=== PATIENT | female | born 2000 | race Caucasian/White ===

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

== ENCOUNTER → 2020-01-23 10:11 | Outpatient (CLI) | payer OTHER, MEDICAID, SELFPAY ==
[2020-01-23 11:06] LABS: Glucose,Fasting 88 mg/dl (74-100)
[2020-01-23 11:55] LABS: Glucose 1 Hour 113 mg/dL (74-100)
== END ==
PROVIDERS: Visit Provider Obstetrics & Gynecology
DX: Z34.90 Encounter for supervision of normal pregnancy, unspecified, unspecified trimester (principal)
CPT/HCPCS: 36415; 82951

== ENCOUNTER → 2020-03-14 14:45 | Outpatient (CLI) | payer OTHER, MEDICAID, SELFPAY ==
--- NOTE | 2020-03-14 14:46 | US_ITS ---
PROCEDURE: US OB FOLLOW UP CLINICAL INDICATION: US OB- Growth CAROL- SGA COMPARISON: US US OB /MATERNAL DETAIL from 12/03/2019 FINDINGS: There is a live IUP in cephalic presentation. Cervix is closed and measures 3 cm. heart and body motion noted. The placenta is posterior and lateral and grade 2 Measurements: Average ultrasound age 35weeks 3days. Gestational Age 35weeks 3days Estimated due date by ultrasound age 0104/15/2020. Estimated weight 2,567g BPD = 36weeks 2days OFD = 35 weeks 1 day HC = 35weeks 1day AC = 34weeks 2days FL = 36weeks Growth Percentile= 66% Heart Rate = 150bpm Cerebellum = Humerus = HC/AC is 1.03 CI is 0.82 FL/BPD is 0.78 FL/AC is 0.23 CAROL is 16 cm IMPRESSION: Live IUP at 35 weeks 3 days. Estimated weight is 2567 g which is 66 percentile. CAROL is 16 cm Dictated by: Baldemar Corrigan MD 03/14/2020 17:29 Baldemar Corrigan MD in [place] 03/14/2020 17:29
== END ==
PROVIDERS: PCP Obstetrics & Gynecology; Visit Provider Obstetrics & Gynecology
DX: O36.5990 Maternal care for other known or suspected poor fetal growth, unspecified trimester, not applicable or unspecified (principal)
CPT/HCPCS: 76816

== ENCOUNTER 2020-03-21 16:40 | Outpatient (CLI) | payer OTHER, MEDICAID, SELFPAY ==
[2020-03-21 16:57] VITALS: BMI 32.1
[2020-03-21 17:22] LABS: Microscopic, Urine URINE MICROSCOPIC (MICROSCOPIC)
[2020-03-21 17:24] LABS: Appearance,Urine SL CLOUDY (Clear); Bilirubin,Urine Negative (Negative); Blood, Urine Negative (Negative); Color,Urine YELLOW (Yellow); Glucose,Urine (UA) Negative (Negative); Ketones,Urine Negative (Negative); Leukocyte Esterase,Urine TRACE (Negative); Nitrate,Urine Negative (Negative); PH,Urine 5.5 (5.0-8.5); Protein,Urine TRACE (Negative); Specific Gravity, Urine >= 1.030 (1.005-1.030); Urobilinogen,Urine 0.2 EU/dl (0.2)
[2020-03-21 17:27] LABS: Fetal Membrane Rupture (Rapid) Negative (Negative)
[2020-03-21 17:28] LABS: Bacteria,Urine 1+ /lpf; Squamous Epithelial Cell,Urine 20-50 #/hpf (0-5)
[2020-03-21 17:29] LABS: Amorphous Sediment,Urine 1+ /lpf; Calcium Oxalate Crystals,Urine Trace /lpf
[2020-03-21 17:35] LABS: Barbiturates Screen,Urine Negative ng/ml (<200)
[2020-03-21 17:36] LABS: Benzodiazepines Screen,Urine Negative ng/ml (<200)
[2020-03-21 17:38] LABS: Cannabinoid Screen,Urine Negative ng/ml (<50); Cocaine Screen,Urine Negative ng/ml (<300)
[2020-03-21 17:39] LABS: Methadone Screen,Urine Negative ng/ml (<300); Opiate Screen,Urine Negative ng/ml (<300)
[2020-03-21 17:40] LABS: Phencyclidine Screen,Urine Negative ng/ml (<25)
[2020-03-21 17:42] VITALS: BP 129/90; PULSE 105; RESP 16; TEMP 36.9; O2SAT 96; BMI 32.4
[2020-03-21 17:42] LABS: Amphetamine/Metha Screen,Urine Negative ng/ml (<1000)
== END 2020-03-21 18:10 | disposition home or self-care (01) ==
LOC: OBOUT 16:42 → OB 16:44
PROVIDERS: Visit Provider Obstetrics & Gynecology
DX: O47.03 False labor before 37 completed weeks of gestation, third trimester (principal); Z3A.35 35 weeks gestation of pregnancy
CPT/HCPCS: 59025; 80305; 81001; 84112; G0463

== ENCOUNTER → 2020-03-24 16:50 | Outpatient (CLI) | payer OTHER, MEDICAID, SELFPAY | PROVIDERS: Visit Provider Obstetrics & Gynecology | DX: Z34.90 Encounter for supervision of normal pregnancy, unspecified, unspecified trimester (principal) | CPT/HCPCS: 86403 ==

== ENCOUNTER 2020-03-25 11:08 | Inpatient (IN) | payer OTHER, MEDICAID, SELFPAY ==
[2020-03-25 09:50] VITALS: BP 133/91; PULSE 78; RESP 18; TEMP 36.7; O2SAT 100; BMI 33.5
[2020-03-25 10:08] LABS: Microscopic, Urine URINE MICROSCOPIC (MICROSCOPIC)
[2020-03-25 10:12] LABS: Appearance,Urine CLEAR (Clear); Bilirubin,Urine Negative (Negative); Blood, Urine TRACE-I (Negative); Color,Urine YELLOW (Yellow); Glucose,Urine (UA) Negative (Negative); Ketones,Urine Negative (Negative); Leukocyte Esterase,Urine Negative (Negative); Nitrate,Urine Negative (Negative); Protein,Urine Negative (Negative); Specific Gravity, Urine 1.015 (1.005-1.030); Urobilinogen,Urine 0.2 EU/dl (0.2)
[2020-03-25 10:24] LABS: Fetal Membrane Rupture (Rapid) Positive (Negative)
[2020-03-25 10:27] LABS: Amphetamine/Metha Screen,Urine Negative ng/ml (<1000); Barbiturates Screen,Urine Negative ng/ml (<200)
[2020-03-25 10:28] LABS: Benzodiazepines Screen,Urine Negative ng/ml (<200); Squamous Epithelial Cell,Urine Occasional #/hpf (0-5)
[2020-03-25 10:29] LABS: Cannabinoid Screen,Urine Negative ng/ml (<50); Cocaine Screen,Urine Negative ng/ml (<300)
[2020-03-25 10:30] LABS: Methadone Screen,Urine Negative ng/ml (<300); Opiate Screen,Urine Negative ng/ml (<300)
[2020-03-25 10:31] LABS: Phencyclidine Screen,Urine Negative ng/ml (<25)
[2020-03-25 11:20] LABS: Basophils # 0.1 K/mm3 (0-0.2); Basophils % 0.4 % (0.1-2.0); Eosinophils # 0.1 K/mm3 (0.0-0.4); Eosinophils % 0.6 % (0.1-12.0); Hematocrit 40.2 % (37.0-47.0); Hemoglobin 13.2 g/dL (12.2-16.2); Lymphocytes # 2.6 K/mm3 (0.7-4.5); Lymphocytes % 15.9 % (10-50); Mean Corpuscular HGB Conc 32.8 g/dL (31.8-35.4); Mean Corpuscular Hemoglobin 29.1 pg (27.0-31.2); Mean Corpuscular Volume 88.7 fl (81-99); Mean Platelet Volume 9.8 fl (7.4-10.4); Monocytes # 0.7 K/mm3 (0.1-1.0); Monocytes % 4.1 % (1.7-9.3); Neutrophils # 13.1 K/mm3 (1.8-7.8); Platelet Count 252 K/mm3 (142-424); Red Blood Count 4.53 M/mm3 (4.20-5.40); Red Cell Distribution Width 14.4 % (11.5-17.5); White Blood Count 16.5 K/mm3 (4.5-13.0)
[2020-03-25 11:26] LABS: MANUAL DIFFERENTIAL MANUAL DIFFERENTIAL (MANUAL DIFF)
[2020-03-25 11:49] LABS: Coronavirus 19 IgG Antibody Negative (Negative); Coronavirus 19 IgM Antibody Negative (Negative)
[2020-03-25 12:35] LABS: Eosinophils % 1 % (0-3); Lymphocytes % 13 % (10-50); Monocytes % 3 % (2-9); Neutrophils % 83 % (42-76); Platelet Estimate Normal; RBC Morphology Normal; Total Cells Counted 100
--- NOTE | 2020-03-25 13:28 | HMH.OBAPHP ---
OB - H&P: HPI Antepartum - History of Present Illness Chief complaint: leakage of fluid History of present illness: 20 yo G1 @ 35 5/6 presented with gush of fluid Amnisure positive for rupture of membranes Regular contractions No vaginal bleeding Normal movement GBS culture obtained in office yesterday and result is still pending [facility] History I have reviewed the patient's past medical history: Yes *Have you ever received a pneumonia vaccine?: No *Have you received a flu vaccine this season?: No Other Surgeries: Yes: No Previous Surgery. No: Amputation: No Fractures: No - *Social History Smoking Status: Never smoker Alcohol Intake: never Substance Use Type: denies use *Occupational Status:: other *Travel in the last 8 weeks: None Family Hx:: Cancer, Asthma Para: 0 Review of Systems - Review of Systems Review of systems:: pertinent systems reviewed and negative unless documented below - *Genitourinary Denies abnormal vaginal bleeding Comments: + contractions, + leakage of fluid Meds Home Medications Medication Instructions Recorded Confirmed Type pediatric multivitamin no.49 1 tab PO DAILY 09/14/19 03/25/20 History Allergies Allergy/AdvReac Type Severity Reaction Status Date / Time No Known Allergies Allergy Verified 03/24/20 15:33 OB - H&P: Exam - Physical Exam Vital signs: Temp Pulse Resp BP Pulse Ox 98.0 F 78 18 133/91 H 100 03/25/20 09:50 03/25/20 09:50 03/25/20 09:50 03/25/20 09:50 03/25/20 09:50 - Constitutional no acute distress - Routine HEENT Exam Head: Present: normocephalic, atraumatic Eye: Absent: conjunctival icterus ENT: Present: mucous membranes moist - Routine Neck Exam Present: supple - Routine Respiratory Exam Present: CTA bilaterally. Absent: respiratory distress - Routine Cardiovascular Exam Present: RRR - Routine Abdominal Exam Present: soft. Absent: tenderness, distended - Routine Exam Comments: cervix 290/-1 grossly ruptured IUPC and FSE placed without difficulty - Routine Extremities Exam Absent: edema - Routine Skin Exam Absent: rash - Routine Neurological Exam Present: alert, oriented X3 - Routine Psychiatric Exam Present: normal affect OB - Results - Labs Labs: Short CBC 03/25/20 Range/Units 10:54 WBC 16.5 H (4.5-13.0) K/mm3 Hgb 13.2 (12.2-16.2) g/dL Hct 40.2 (37.0-47.0) % Plt Count 252 (142-424) K/mm3 Urine 03/25/20 Range/Units 09:50 Urine Color Yellow (Yellow) Urine Appearance Clear (Clear) Urine pH 6.0 (5.0-8.5) Ur Specific [place] 1.015 (1.005-1.030) Urine Protein Negative (Negative) Urine Glucose (UA) Negative (Negative) OB - A/P Antepartum (1) 35 weeks gestation of Status: Acute (2) Spontaneous rupture of amniotic membranes Status: Acute (3) Active labor Status: Acute - Additional Plan Additional Information:: Admitted for labor Ampicillin prophylaxis with unknown GBS status Pitocin augmentation started Epidural at patient request Continuous monitoring
--- NOTE | 2020-03-25 17:17 | HMH.DN ---
- Delivery Note Delivery Date:: 03/25/20 Delivery Time:: 15:10 Anesthesia Type: None Was labor medically induced?: No Gestational age (weeks): 35 delivered prior to 39 weeks?: Yes Justification for early elective delivery:: Premature ROM at 1 minute: 7 at 5 minutes: 9 Delivery Procedure:: Spontaneous vaginal delivery of liveborn male over intact perineum. Delivery uncomplicated Nuchal cord x 1 reduced on perineum; no shoulder dystocia with delivery taken to warmer for pediatric assessment immediately after umbilical cord clamped/cut Infant Apgars: 7 & 9 Placenta spontaneously expressed and examined; noted to be complete/intact. Vulva, vagina, and cervix inspected; 2nd degree laceration repaired in layers with 2-0 vicryl EBL: 300 cc All sponge/needle/instrument counts correct at conclusion of procedure Disposition: Mom/baby stable to recovery in LDRP Laceration:: vaginal Placental Delivery Description: Spontaneous
[2020-03-26 08:00] VITALS: BP 128/75; PULSE 100; RESP 18; TEMP 36.9; O2SAT 100
[2020-03-26 08:27] LABS: Hematocrit 34.2 % (37.0-47.0)
[2020-03-26 08:45] LABS: Hemoglobin 11.2 g/dL (12.2-16.2)
[2020-03-26 12:00] VITALS: BP 117/77; PULSE 98; RESP 18; TEMP 36.7; O2SAT 99
[2020-03-26 16:00] VITALS: BP 120/77; PULSE 92; RESP 20; TEMP 36.8; O2SAT 99
--- NOTE | 2020-03-27 09:14 | HMH.ACPN2 ---
Internal Medicine - PN: Subj *Date: 03/26/20 *Time: 09:14 Interval history: She is 1 day from a vaginal delivery. She is doing well. She is eating and drinking and ambulating. She is breast-feeding. Her lochia is normal. Exam Vital signs and Labs for Last 24 Hours: Temp Pulse Resp BP Pulse Ox 98.2 F 92 H 20 120/77 99 03/26/20 16:00 03/26/20 16:00 03/26/20 16:00 03/26/20 16:00 03/26/20 16:00 I & O for Last 24 hours: Intake & Output 03/24/20 03/25/20 03/26/20 03/27/20 11:59 11:59 11:59 11:59 Weight 195 lb - Constitutional no acute distress - *Routine HEENT Exam Head: Present: normocephalic Eye: Present: EOMI, PERRL ENT: Present: mucous membranes moist Assessment and Plan (1) 35 weeks gestation of Status: Acute Category: Medical Code(s): Z3A.35 - 35 weeks gestation of (2) Spontaneous rupture of amniotic membranes Status: Acute Category: Medical (3) Active labor Status: Acute Category: Medical Code(s): O60.10X0 - labor with delivery, unspecified trimester, not applicable or unspecified - Assessment and plan all Dx Assessment and Plan for all problems:: She is doing well. She is breast-feeding. Her lochia is normal. We will plan to send her home tomorrow.
--- NOTE | 2020-03-27 09:15 | HMH.OBDCSM ---
General - General Admission date:: 03/25/20 Discharge date: 03/27/20 HPI - History of Present Illness History of present illness: She is a 20-year-old 1 para 0 who was 35 and 6 weeks gestational age. She came in with ruptured membranes and active labor. Hospital Course Hospital Course: She had ruptured membranes and was in active labor. She progressed to full dilation and delivered spontaneously a liveborn male child at 3:10 PM in the afternoon of March 25, 2020. The baby weighed 6 pounds 8 ounces and was 18-1/4 inches long. He had Apgars of 7 at 1 minute and 9 at 5 minutes. She had a second-degree perineal laceration. She has done well and has remained afebrile throughout her hospitalization. She is eating and drinking and ambulating. She is breast-feeding. She has a positive blood, she is rubella immune and was group B streptococcus negative. Her health and wellness instructor is Dr. Borges. She is discharged home to follow-up with Dr. Billingsley in approximately 2 weeks time. She will continue with her vitamins and iron. She was given the usual instructions with respect to limiting her activity, driving and sexual activity. Her condition on discharge is stable and improved. Rhogam Administration: Not Indicated Objective Vital signs: Temp Pulse Resp BP Pulse Ox 98.2 F 92 H 20 120/77 99 03/26/20 16:00 03/26/20 16:00 03/26/20 16:00 03/26/20 16:00 03/26/20 16:00 no acute distress - *Routine HEENT Exam Head: Present: normocephalic Eye: Present: EOMI, PERRL ENT: Present: mucous membranes moist DS: Diagnosis - Discharge Diagnosis (1) 35 weeks gestation of Status: Acute (2) Spontaneous rupture of amniotic membranes Status: Acute (3) Active labor Status: Acute Discharge Plan - Patient Discharge Instructions ACTIVITY: No heavy lifting DIET: continue same diet Additional Instructions: NOTHING IN THE VAGINA FOR 6 WEEKS NO HEAVY LIFTING OR STRENUOUS ACTIVITY. Patient Instructions: Depression, Hemorrhage, DI for Labor and Delivery, Vaginal , DI for Pre-eclampsia, Preventing the Spread of Coronavirus Discharge Instructions - Follow up Plan Follow up with: Tania Billingsley MD [Staff Physician] - Disposition: Home, Self-Retirement Medications: Home Medications Medication Instructions Recorded Confirmed Type pediatric multivitamin no.49 1 tab PO DAILY 09/14/19 03/25/20 History Prescriptions/Medication Reconciliation: Continued pediatric multivitamin no.49 1 tab PO DAILY - Problem Reconciliation Problems Reviewed?: Yes
== END 2020-03-27 11:11 | disposition home or self-care (01) | DRG 807 ==
LOC: OBOUT 11:08 → OB 11:08
PROVIDERS: Admitting Provider Obstetrics & Gynecology; Visit Provider Obstetrics & Gynecology
DX: O60.14X0 Preterm labor third trimester with preterm delivery third trimester, not applicable or unspecified (principal); Z37.0 Single live birth; Z3A.35 35 weeks gestation of pregnancy; O70.1 Second degree perineal laceration during delivery
CPT/HCPCS: 59409; 36415; 59025; 80305; 81001; 84112; 85007; 85014; 85018; 85025; 86328; 86850; 90686; C1758; J0290

== ENCOUNTER → 2020-05-27 15:36 | Outpatient (CLI) | payer OTHER, MEDICAID, SELFPAY ==
[2020-05-27 16:58] LABS: Basophils # 0.1 K/mm3 (0-0.2); Basophils % 0.6 % (0.1-2.0); Eosinophils # 0.2 K/mm3 (0.0-0.4); Eosinophils % 1.9 % (0.1-12.0); Hematocrit 41.5 % (37.0-47.0); Hemoglobin 13.3 g/dL (12.2-16.2); Lymphocytes # 3.4 K/mm3 (0.7-4.5); Mean Corpuscular HGB Conc 32.1 g/dL (31.8-35.4); Mean Corpuscular Hemoglobin 27.9 pg (27.0-31.2); Mean Corpuscular Volume 86.9 fl (81-99); Mean Platelet Volume 7.8 fl (7.4-10.4); Monocytes # 0.4 K/mm3 (0.1-1.0); Monocytes % 4.3 % (1.7-9.3); Neutrophils # 6.2 K/mm3 (1.8-7.8); Neutrophils % 60.1 % (37.0-80.0); Platelet Count 319 K/mm3 (142-424); Red Blood Count 4.78 M/mm3 (4.20-5.40); Red Cell Distribution Width 13.8 % (11.5-17.5); White Blood Count 10.2 K/mm3 (4.5-13.0)
[2020-05-27 17:11] LABS: Chloride 106 mmol/L (98-107); Potassium 4.3 mmoL/L (3.5-5.1); Sodium 141 mmol/L (136-145)
[2020-05-27 17:14] LABS: Alanine Aminotransferase 31 U/L (12-78); Albumin Level 4.4 g/dl (3.5-5.0); Albumin/Globulin Ratio 1.5 (1.1-1.8); Alkaline Phosphatase 108 U/L (38-126); Anion Gap 13.3 mEq/L (5-15); Aspartate Amino Transferase 35 U/L (14-36); Bilirubin,Total 0.7 mg/dl (0.2-1.3); Blood Urea Nitrogen 11 mg/dl (7-17); Carbon Dioxide 26 mmol/L (22.0-30.0); Estimated Glomerular Filt Rate 107 ml/min (>60); GFR (African American) 129 ML/MIN (>60); Total Protein,Serum 7.4 g/dl (6.3-8.2)
[2020-05-27 17:15] LABS: Calcium 9.9 mg/dl (8.4-10.2); Glucose 95 mg/dl (74-100)
[2020-05-27 17:46] LABS: Thyroid Stimulating Hormone 1.09 uIU/mL (0.465-4.68)
[2020-05-27 18:04] LABS: Vitamin B12 485 pg/mL (239-931)
[2020-05-30 18:37] LABS: Anti-Cardio Antibody IgM 13 MPL U/mL (0-12); Anti-Cardiolipin Antibody IgG <9 GPL U/mL (0-14); Anticardiolipin Ab,IgA,Qn <9 APL U/mL (0-11)
[2020-06-07 22:13] LABS: Antinuclear Antibodies (ANA) NEGATIVE
== END ==
PROVIDERS: Visit Provider Nurse Practitioner Family
DX: F39 Unspecified mood [affective] disorder (principal); G44.1 Vascular headache, not elsewhere classified; Z39.2 Encounter for routine postpartum follow-up; Z68.30 Body mass index [BMI] 30.0-30.9, adult
CPT/HCPCS: 36415; 80053; 82607; 84443; 85025; 86038; 86147; 86225; 86235

== ENCOUNTER → 2020-06-11 12:46 | Outpatient (CLI) | payer OTHER, MEDICAID, SELFPAY | PROVIDERS: Visit Provider Specialist | DX: R51.9 Headache, unspecified (principal) ==

== ENCOUNTER → 2020-07-11 15:20 | Outpatient (CLI) | payer OTHER, MEDICAID, SELFPAY ==
[2020-07-14 17:42] LABS: Anti-Cardio Antibody IgM 12 MPL U/mL (0-12); Anti-Cardiolipin Antibody IgG <9 GPL U/mL (0-14); Anticardiolipin Ab,IgA,Qn <9 APL U/mL (0-11)
== END ==
PROVIDERS: Visit Provider Nurse Practitioner Family
DX: O90.89 Other complications of the puerperium, not elsewhere classified (principal); R51.9 Headache, unspecified; R89.9 Unspecified abnormal finding in specimens from other organs, systems and tissues
CPT/HCPCS: 36415; 86147

== ENCOUNTER 2021-03-09 13:04 | Emergency (ER) | payer OTHER, MEDICAID, SELFPAY ==
[2021-03-09 14:30] VITALS: BP 0/0; PULSE 0; RESP 0; TEMP -17.7; TEMP 0
== END 2021-03-09 14:35 | disposition left against medical advice (07) ==
LOC: UTC 13:06
PROVIDERS: Emergency Provider Nurse Practitioner
DX: Z53.21 Procedure and treatment not carried out due to patient leaving prior to being seen by health care provider (principal)

== ENCOUNTER 2021-03-10 12:41 | Emergency (ER) | payer OTHER, MEDICAID, SELFPAY ==
[2021-03-10 13:36] LABS: UTC Strep Screen (Rapid) Negative (Negative)
[2021-03-10 13:38] VITALS: BP 152/104; PULSE 93; RESP 16; TEMP 36.8; O2SAT 99
--- NOTE | 2021-03-10 14:00 | HMH.EDUTC ---
[facility] [place] Clinical Impression: Viral upper respiratory illness Disposition: Home, Self-Care Condition on Discharge: Good Instructions: DI for Viral Upper Respiratory Infection -- Adult, Cough, DI for COVID-19 (Suspected or Confirmed ), Preventing the Spread of Coronavirus Discharge Instructions Additional Instructions: *Monitor Temp, Over the counter Motrin or Tylenol as directed/as needed Tylenol every 4 hours and Motrin every 6 hours (as long as your family doctor has told you that you can take it) for fever or pain. and straight to ER if unable to lower temp less than 101.0 after medication given *Warm salt water gargles may help to soothe the throat *Throat Lozenges *Warm fluids like tea with honey may help to soothe the throat *Sleep elevated *Humidifier/Vaporizer *Bromfed may cause drowsiness. Know how it effects you (your child) before driving, caring for small child, or sending your child to school. Not other antihistamines/allergy medications while taking bromfed Your throat swab was sent for culture. Those results are typically sent to your primary care. Be sure to follow up in 2-3 days with your family doctor/primary care physician if no improvement so they can review those result and treat if necessary. If you don?t have a primary care doctor, I recommend you get one but in the mean time, you will have to return to a walk in clinic Follow up IMMEDIATELY for new or worsening symptoms or no Noticeable improvement over the next 48-72 hours. 911 for difficulty breathing or swallowing You were tested for today for COVID19 your test result should be back in the next 24-48 hours, you may check your results on the [facility] My Health portal if you have trouble logging on or seeing your results you may call You was given a handout with instructions for Self Quarantine and Self isolation for while you wait on test results and what to do if they are positive If you are positive the Health Dept will be contacting you also Make sure to take your Vitamins Vit. C Vit D and Zinc if you can take them Prescriptions: Brompheniramine/Pseudoephed/Dm [Bromfed Dm Cough Syrup] 5 - 10 ml PO Q46H PRN #200 ml PRN Reason: Cough Transmission Status: Pending to [id number] Referrals: Provider,Referral, MD [Primary Care Provider] - As needed Forms: Work/School Release Time of Disposition: 14:08 Medical Decision Making - Cornell Inquiry Pt receiving controlled substance: No Cornell was queried for this patient: No Vital Signs: 03/10/21 13:38 Temperature 98.3 F Temperature Source Oral Pulse Rate [Left] 93 H Respiratory Rate 16 Blood Pressure [Right Arm] 152/104 H Blood Pressure Mean [Right Arm] 120 02 Sat by Pulse Oximetry 99 - Lab Data Lab results reviewed: Yes: I reviewed the patient's lab results. Lab Results 03/10/21 13:25: Strep Scn Rapid Clinic Negative Orders (Tests/Meds): ORDERS Category Date Time Status Covid-19 Nasal PCR ([facility]) Routine Lab 03/10/21 13:18 Received Strep Screen Confirmation Stat Micro 03/10/21 13:25 Received [facility] UTC HPI - General Stated complaint: sore throat, cough, chills, congestion Time Seen by Provider: 03/10/21 14:00 Mode of Arrival: Ambulatory Source of Information: Patient Limitations: No Limitations Description of Symptoms (Recalled from Triage Doc. by RN): pt c/o sore throat, cough, congestion, chills and body aches. HEENT Symptoms (Recalled from RN notes): Yes (sore throat and congestion) Resp Symptoms (Recalled from RN notes): Yes (cough) Skin Symptoms (Recalled from RN notes): No MS Symptoms (Recalled from RN notes): No Functional Status (Recalled from RN notes): wnl - History of Present Illness Provider Complaint: Patient states that she hasnt felt well for close to a week States that she has been having sore throat, cough, nasal congestion and bodyaches and chills States that today her chills and body aches are worse so she came in to get checked for s
[2021-03-10 14:10] VITALS: BP 136/92; PULSE 87; RESP 16; TEMP 36.8
== END 2021-03-10 14:21 | disposition home or self-care (01) ==
PROVIDERS: Emergency Provider Nurse Practitioner
DX: J06.9 Acute upper respiratory infection, unspecified (principal); Z20.822 Contact with and (suspected) exposure to COVID-19
CPT/HCPCS: 87880; 99203; C9803; G0463; U0003; U0005

== ENCOUNTER → 2021-04-21 11:03 | Outpatient (CLI) | payer OTHER, MEDICAID, SELFPAY | PROVIDERS: Visit Provider Nurse Practitioner | DX: U07.1 COVID-19 (principal) | CPT/HCPCS: C9803; U0003; U0005 ==

== ENCOUNTER → 2021-07-07 13:54 | Outpatient (CLI) | payer MEDICAID, SELFPAY ==
[2021-07-07 15:39] LABS: HCG,Quantitative < 2 mIU/ml (0-5.42)
== END ==
PROVIDERS: Visit Provider Obstetrics & Gynecology
DX: Z34.90 Encounter for supervision of normal pregnancy, unspecified, unspecified trimester (principal)
CPT/HCPCS: 36415; 84702

== ENCOUNTER → 2021-12-09 15:38 | Outpatient (CLI) | payer MEDICAID, SELFPAY ==
--- NOTE | 2021-12-09 15:38 | US_ITS ---
FINAL REPORT CLINICAL HISTORY: pelvic pain -- pt trying to conceive for 8 months FINDINGS: Transvaginal sonographic images of the pelvis were obtained. The uterus measures 6.7 x 3.7 x 3.2 cm. The endometrium measures 3 mm, which is within normal limits. No uterine mass is identified. The right ovary measures 2.4 cm in length and left ovary measures 2.9 cm in length. Normal blood flow seen to the ovaries. Multiple small follicles are present in each ovary. There is no evidence of free fluid. IMPRESSION: No acute abnormality identified. Reviewed, Interpreted and Dictated by Davie Egan III, MD Transcribed by Rosemary Guillaume Authenticated and [facility]
== END ==
PROVIDERS: PCP Obstetrics & Gynecology; Visit Provider Obstetrics & Gynecology
DX: R10.2 Pelvic and perineal pain (principal)
CPT/HCPCS: 76830

== ENCOUNTER → 2022-02-22 16:45 | Outpatient (CLI) | payer MEDICAID, SELFPAY ==
[2022-02-22 19:50] LABS: HCG,Quantitative 270 mIU/ml (0-5.42)
== END ==
PROVIDERS: PCP Obstetrics & Gynecology; Visit Provider Obstetrics & Gynecology
DX: Z32.01 Encounter for pregnancy test, result positive (principal)
CPT/HCPCS: 36415; 84702

== ENCOUNTER → 2022-03-01 16:34 | Outpatient (CLI) | payer MEDICAID, SELFPAY ==
[2022-03-01 17:32] LABS: HCG,Quantitative 5074 mIU/ml (0-5.42)
== END ==
PROVIDERS: PCP Obstetrics & Gynecology; Visit Provider Obstetrics & Gynecology
DX: N92.6 Irregular menstruation, unspecified (principal)
CPT/HCPCS: 36415; 84144; 84702

== ENCOUNTER 2022-03-03 11:53 | Emergency (ER) | payer MEDICAID, SELFPAY ==
[2022-03-03 12:30] VITALS: BP 133/81; PULSE 99; RESP 18; TEMP 37.1; O2SAT 99
--- NOTE | 2022-03-03 15:00 | PC.NURSE ---
pt states she does not want to wait to see the physician and wants to leave without being seen.
[2022-03-03 16:16] VITALS: BP 0/0; PULSE 0; RESP 0; TEMP -17.7; TEMP 0; O2SAT 0
== END 2022-03-03 15:00 | disposition left against medical advice (07) ==
PROVIDERS: Emergency Provider Emergency Medicine
DX: Z53.21 Procedure and treatment not carried out due to patient leaving prior to being seen by health care provider (principal)

== ENCOUNTER → 2022-03-05 15:52 | Outpatient (CLI) | payer MEDICAID, SELFPAY ==
[2022-03-05 16:39] LABS: HCG,Quantitative 13252 mIU/ml (0-5.42)
[2022-03-07 09:20] LABS: Progesterone 10.1 ng/mL (.)
== END ==
PROVIDERS: PCP Obstetrics & Gynecology; Visit Provider Obstetrics & Gynecology
DX: O36.80X0 Pregnancy with inconclusive fetal viability, not applicable or unspecified (principal)
CPT/HCPCS: 36415; 84144; 84702

== ENCOUNTER → 2022-03-18 16:15 | Outpatient (CLI) | payer MEDICAID, SELFPAY ==
[2022-03-18 16:46] LABS: Basophils # 0.1 K/mm3 (0-0.2); Basophils % 0.6 % (0.1-2.0); Eosinophils # 0.1 K/mm3 (0.0-0.4); Eosinophils % 0.7 % (0.1-12.0); Hematocrit 39.8 % (37.0-47.0); Hemoglobin 13.4 g/dL (12.2-16.2); Lymphocytes # 2.3 K/mm3 (0.7-4.5); Lymphocytes % 17.6 % (10-50); Mean Corpuscular HGB Conc 33.6 g/dL (31.8-35.4); Mean Corpuscular Hemoglobin 28.2 pg (27.0-31.2); Mean Corpuscular Volume 83.8 fl (81-99); Mean Platelet Volume 8.1 fl (7.4-10.4); Monocytes # 0.5 K/mm3 (0.1-1.0); Monocytes % 3.5 % (1.7-9.3); Neutrophils # 10.2 K/mm3 (1.8-7.8); Neutrophils % 77.5 % (37.0-80.0); Platelet Count 361 K/mm3 (142-424); Red Blood Count 4.75 M/mm3 (4.20-5.40); Red Cell Distribution Width 12.7 % (11.5-17.5); White Blood Count 13.2 K/mm3 (4.8-10.8)
[2022-03-20 06:10] LABS: Rubella Antibodies, IgG <0.90 index (Immune >0.99)
[2022-03-20 14:46] LABS: Rapid Plasma Reagin Ab Titer Non Reactive (NonRea<1:1)
[2022-04-05 20:22] LABS: HIV Screen 4th Generation wRfx NON REACTIVE
[2022-04-05 20:23] LABS: Hepatitis B Surface Antigen NEGATIVE; Hepatitis C Antibody <0.1
== END ==
PROVIDERS: PCP Obstetrics & Gynecology; Visit Provider Obstetrics & Gynecology
DX: Z34.90 Encounter for supervision of normal pregnancy, unspecified, unspecified trimester (principal)
CPT/HCPCS: 36415; 85025; 86592; 86703; 86762; 86850; 87086; 87340; 87380; G0432

== ENCOUNTER → 2022-07-22 08:23 | Outpatient (CLI) | payer MEDICAID, SELFPAY ==
[2022-07-22 09:16] LABS: Basophils % 0.3 % (0.1-2.0); Eosinophils # 0.1 K/mm3 (0.0-0.4); Eosinophils % 0.8 % (0.1-12.0); Hematocrit 36.6 % (37.0-47.0); Hemoglobin 11.8 g/dL (12.2-16.2); Lymphocytes # 2.6 K/mm3 (0.7-4.5); Lymphocytes % 16.8 % (10-50); Mean Corpuscular HGB Conc 32.1 g/dL (31.8-35.4); Mean Corpuscular Hemoglobin 27.7 pg (27.0-31.2); Mean Corpuscular Volume 86.2 fl (81-99); Mean Platelet Volume 8.2 fl (7.4-10.4); Monocytes # 0.5 K/mm3 (0.1-1.0); Monocytes % 2.9 % (1.7-9.3); Neutrophils # 12.1 K/mm3 (1.8-7.8); Neutrophils % 79.3 % (37.0-80.0); Platelet Count 256 K/mm3 (142-424); Red Blood Count 4.25 M/mm3 (4.20-5.40); Red Cell Distribution Width 13.5 % (11.5-17.5); White Blood Count 15.3 K/mm3 (4.8-10.8)
[2022-07-22 09:21] LABS: MANUAL DIFFERENTIAL MANUAL DIFFERENTIAL (MANUAL DIFF)
[2022-07-22 09:26] LABS: Glucose,Fasting 95 mg/dl (74-100)
[2022-07-22 10:32] LABS: Lymphocytes % 17 % (10-50); Monocytes % 2 % (2-9); Neutrophils % 81 % (42-76); Platelet Estimate Normal; RBC Morphology Normal; Total Cells Counted 100
[2022-07-22 11:12] LABS: Glucose 1 Hour 129 mg/dL (74-100)
== END ==
PROVIDERS: Visit Provider Obstetrics & Gynecology
DX: Z34.90 Encounter for supervision of normal pregnancy, unspecified, unspecified trimester (principal)
CPT/HCPCS: 36415; 82951; 85007; 85025

== ENCOUNTER → 2022-09-16 09:10 | Outpatient (CLI) | payer MEDICAID, SELFPAY ==
--- NOTE | 2022-09-16 09:13 | US_ITS ---
PROCEDURE: US OB FOLLOW UP CLINICAL INDICATION: LGA COMPARISON: No exams were available for comparison FINDINGS: The following parameters are obtained: From her established due date she is 33weeks 5days Viable fetus in the cephalic presentation with an anterior placenta grade 1-2. heart rate: 152bpm bpm. BPD: 33weeks 5days OFD: 33weeks 3days HC: 33weeks 2days AC: 33weeks FL: 33weeks HC/AC: 1.04 Cephalic index: 0.79 FL/BPD: 0.76 FL/AC: 0.22 Amniotic fluid index: 10.4cm No obvious anomalies evident. Three-vessel cord, stomach, bladder, kidney, four chamber heart appear normal. IMPRESSION: 1. There is a single live fetus present in cephalic presentation with an anterior placenta grade 2. 2. Average ultrasound age 33weeks 2days with an estimated weight 4lb 10.1oz which is 25 percentile. 3. The amniotic fluid index is normal. Dictated by: Fabio Estevez MD 09/16/2022 17:54 Fabio Estevez MD in [place] 09/16/2022 17:54
== END ==
PROVIDERS: Visit Provider Obstetrics & Gynecology
DX: O36.63X0 Maternal care for excessive fetal growth, third trimester, not applicable or unspecified (principal); Z3A.33 33 weeks gestation of pregnancy
CPT/HCPCS: 76816

== ENCOUNTER 2022-09-26 19:33 | Outpatient (CLI) | payer MEDICAID, SELFPAY ==
[2022-09-26 19:40] VITALS: BMI 34.3
[2022-09-26 19:50] LABS: Microscopic, Urine URINE MICROSCOPIC (MICROSCOPIC)
[2022-09-26 19:52] LABS: Appearance,Urine SL CLOUDY (Clear); Bilirubin,Urine Negative (Negative); Blood, Urine Negative (Negative); Color,Urine DK YELLOW (Yellow); Glucose,Urine (UA) Negative (Negative); Ketones,Urine Negative (Negative); Leukocyte Esterase,Urine Negative (Negative); Nitrate,Urine Negative (Negative); Protein,Urine TRACE (Negative); Specific Gravity, Urine >= 1.030 (1.005-1.030)
[2022-09-26 19:55] VITALS: BP 141/90; PULSE 101; RESP 18; TEMP 37.5; O2SAT 98; BMI 34.3
[2022-09-26 20:04] LABS: Benzodiazepines Screen,Urine Negative ng/ml (<200)
[2022-09-26 20:05] LABS: Amphetamine/Metha Screen,Urine Negative ng/ml (<1000)
[2022-09-26 20:06] LABS: Barbiturates Screen,Urine Negative ng/ml (<200); Cannabinoid Screen,Urine Negative ng/ml (<50)
[2022-09-26 20:07] LABS: Cocaine Screen,Urine Negative ng/ml (<300); Methadone Screen,Urine Negative ng/ml (<300)
[2022-09-26 20:08] LABS: Opiate Screen,Urine Negative ng/ml (<300)
[2022-09-26 20:09] LABS: Phencyclidine Screen,Urine Negative ng/ml (<25)
[2022-09-26 20:11] LABS: Bacteria,Urine 1+ /lpf; WBC,Urine Occasional #/hpf (0-3)
== END 2022-09-26 22:40 | disposition home or self-care (01) ==
LOC: OBOUT 19:35 → OB 19:36
PROVIDERS: Visit Provider Nurse Practitioner Obstetrics & Gynecology
DX: O36.8130 Decreased fetal movements, third trimester, not applicable or unspecified (principal); Z3A.35 35 weeks gestation of pregnancy
CPT/HCPCS: 59025; 80305; 81001; 96365; 96372; G0463

== ENCOUNTER 2022-09-29 12:57 | Outpatient (CLI) | payer MEDICAID, SELFPAY ==
[2022-09-29 13:11] VITALS: BMI 33.3
[2022-09-29 13:34] LABS: Microscopic, Urine URINE MICROSCOPIC (MICROSCOPIC)
[2022-09-29 13:39] LABS: Appearance,Urine CLEAR (Clear); Bilirubin,Urine Negative (Negative); Blood, Urine Negative (Negative); Color,Urine YELLOW (Yellow); Glucose,Urine (UA) Negative (Negative); Ketones,Urine Negative (Negative); Leukocyte Esterase,Urine Negative (Negative); Nitrate,Urine Negative (Negative); Protein,Urine Negative (Negative)
[2022-09-29 13:54] LABS: Bacteria,Urine 1+ /lpf; Barbiturates Screen,Urine Negative ng/ml (<200); WBC,Urine Occasional #/hpf (0-3)
[2022-09-29 13:55] LABS: Amphetamine/Metha Screen,Urine Negative ng/ml (<1000); Benzodiazepines Screen,Urine Negative ng/ml (<200)
[2022-09-29 14:11] LABS: Cannabinoid Screen,Urine Negative ng/ml (<50)
[2022-09-29 14:12] LABS: Cocaine Screen,Urine Negative ng/ml (<300); Methadone Screen,Urine Negative ng/ml (<300)
[2022-09-29 14:13] LABS: Opiate Screen,Urine Negative ng/ml (<300)
[2022-09-29 14:14] LABS: Phencyclidine Screen,Urine Negative ng/ml (<25)
[2022-09-29 17:00] VITALS: BP 123/81; PULSE 95; RESP 18; TEMP 36.9; O2SAT 96; BMI 33.3
== END 2022-09-29 16:00 | disposition home or self-care (01) ==
LOC: OBOUT 12:58 → OB 13:00
PROVIDERS: Visit Provider Obstetrics & Gynecology
DX: O47.03 False labor before 37 completed weeks of gestation, third trimester (principal); Z3A.35 35 weeks gestation of pregnancy
CPT/HCPCS: 59025; 80305; 81001; 96365; G0463

== ENCOUNTER 2022-10-06 00:19 | Outpatient (CLI) | payer MEDICAID, SELFPAY ==
[2022-10-06 00:45] VITALS: BMI 34.3
[2022-10-06 00:49] VITALS: BP 128/87; PULSE 97; RESP 17; TEMP 36.6; O2SAT 98; BMI 34.3
[2022-10-06 00:52] LABS: Microscopic, Urine URINE MICROSCOPIC (MICROSCOPIC)
[2022-10-06 00:53] LABS: Appearance,Urine CLEAR (Clear); Bilirubin,Urine Negative (Negative); Blood, Urine Negative (Negative); Color,Urine YELLOW (Yellow); Glucose,Urine (UA) Negative (Negative); Ketones,Urine TRACE (Negative); Leukocyte Esterase,Urine Negative (Negative); Nitrate,Urine Negative (Negative); PH,Urine 6.5 (5.0-8.5); Protein,Urine Negative (Negative)
[2022-10-06 01:06] LABS: Bacteria,Urine 2+ /lpf
[2022-10-06 01:07] LABS: Amphetamine/Metha Screen,Urine Negative ng/ml (<1000); Barbiturates Screen,Urine Negative ng/ml (<200)
[2022-10-06 01:08] LABS: Benzodiazepines Screen,Urine Negative ng/ml (<200)
[2022-10-06 01:09] LABS: Cannabinoid Screen,Urine Negative ng/ml (<50); Cocaine Screen,Urine Negative ng/ml (<300)
[2022-10-06 01:10] LABS: Methadone Screen,Urine Negative ng/ml (<300)
[2022-10-06 01:11] LABS: Opiate Screen,Urine Negative ng/ml (<300); Phencyclidine Screen,Urine Negative ng/ml (<25)
== END 2022-10-06 02:42 | disposition home or self-care (01) ==
LOC: OBOUT 00:20 → OB 00:21
PROVIDERS: Visit Provider Obstetrics & Gynecology
DX: O47.03 False labor before 37 completed weeks of gestation, third trimester (principal); Z3A.36 36 weeks gestation of pregnancy
CPT/HCPCS: 59025; 80305; 81001; 87086; 96365; G0463

== ENCOUNTER → 2022-10-07 17:51 | Outpatient (CLI) | payer MEDICAID, SELFPAY | PROVIDERS: Visit Provider Obstetrics & Gynecology | DX: Z34.93 Encounter for supervision of normal pregnancy, unspecified, third trimester (principal); Z3A.36 36 weeks gestation of pregnancy | CPT/HCPCS: 86403 ==

== ENCOUNTER 2022-10-15 04:47 | Inpatient (IN) | payer MEDICAID, SELFPAY ==
[2022-10-15 04:52] VITALS: BMI 35.2
[2022-10-15 05:00] VITALS: BP 142/75; PULSE 103; RESP 17; TEMP 36.8; O2SAT 99; BMI 35.2
[2022-10-15 05:58] LABS: Coronavirus 19, PCR Not Detected (NotDetected); Influenza A, PCR Not Detected (NotDetected); Influenza B, PCR Not Detected (NotDetected); Microscopic, Urine URINE MICROSCOPIC (MICROSCOPIC)
[2022-10-15 06:01] LABS: Basophils # 0.1 K/mm3 (0-0.2); Basophils % 0.3 % (0.1-2.0); Eosinophils # 0.1 K/mm3 (0.0-0.4); Eosinophils % 0.5 % (0.1-12.0); Hemoglobin 11.2 g/dL (12.2-16.2); Lymphocytes # 3.5 K/mm3 (0.7-4.5); Lymphocytes % 20.4 % (10-50); Mean Corpuscular HGB Conc 32.1 g/dL (31.8-35.4); Mean Corpuscular Hemoglobin 26.1 pg (27.0-31.2); Mean Corpuscular Volume 81.3 fl (81-99); Mean Platelet Volume 9.1 fl (7.4-10.4); Monocytes # 0.8 K/mm3 (0.1-1.0); Monocytes % 4.9 % (1.7-9.3); Neutrophils # 12.7 K/mm3 (1.8-7.8); Platelet Count 259 K/mm3 (142-424); Red Cell Distribution Width 14.4 % (11.5-17.5); White Blood Count 17.1 K/mm3 (4.8-10.8)
[2022-10-15 06:06] LABS: MANUAL DIFFERENTIAL MANUAL DIFFERENTIAL (MANUAL DIFF)
[2022-10-15 06:12] LABS: Appearance,Urine SL CLOUDY (Clear); Bilirubin,Urine Negative (Negative); Blood, Urine Negative (Negative); Color,Urine YELLOW (Yellow); Glucose,Urine (UA) TRACE (Negative); Ketones,Urine Negative (Negative); Leukocyte Esterase,Urine Negative (Negative); Nitrate,Urine Negative (Negative); Protein,Urine TRACE (Negative); Specific Gravity, Urine >= 1.030 (1.005-1.030)
[2022-10-15 06:46] LABS: Bacteria,Urine Trace /lpf
[2022-10-15 07:06] LABS: Lymphocytes % 26 % (10-50); Monocytes % 6 % (2-9); Neutrophils % 68 % (42-76); Total Cells Counted 100
[2022-10-15 07:07] LABS: Platelet Estimate Normal; RBC Morphology Normal
[2022-10-15 07:19] LABS: Amphetamine/Metha Screen,Urine Negative ng/ml (<1000)
[2022-10-15 07:20] LABS: Barbiturates Screen,Urine Negative ng/ml (<200); Benzodiazepines Screen,Urine Negative ng/ml (<200)
[2022-10-15 07:21] LABS: Cannabinoid Screen,Urine Negative ng/ml (<50)
[2022-10-15 07:22] LABS: Cocaine Screen,Urine Negative ng/ml (<300); Methadone Screen,Urine Negative ng/ml (<300)
[2022-10-15 07:23] LABS: Opiate Screen,Urine Negative ng/ml (<300); Phencyclidine Screen,Urine Negative ng/ml (<25)
--- NOTE | 2022-10-15 08:07 | EXP.HP ---
History of Present Illness *Admission Date: 10/15/22 *Reason for visit:: Induction of Labor *History of present illness: 22 yo @ 37 6/ admitted for IOL OB history significant for one previous delivered at 35 weeks due to labor She was treated with vaginal prometrium early in this NIPT labs were low risk for aneuploidy regarding all chromosomes tested except for the sex chromosomes There was a suspicion for a sex chromosome abnormality that could not be confirmed with additional testing She was referred to [facility] for consultation but declined amniocentesis when it was offered [facility] Disclaimer: The information contained in this section may have been updated after the patient was seen, as this information can be updated by other users. Medical History History of delivery 35 6/7 PPROM Surgical History No history of previous surgery Family History Other No significant family history Social History (Updated 10/15/22 @ 06:24 by Jocelyn Whatley RN) Smoking Status: Never smoker alcohol intake: never substance use type: denies use current occupational status: unemployed Travel in the last 8 weeks: None household members: significant other and children housing: apartment number of children: 1 Review of Systems Constitutional Constitutional: Reports system reviewed and no additional complaints, except as documented and Denies headache(s) ENT Ears, Nose, Mouth, and Throat: Denies headache(s) *Genitourinary Genitourinary: Denies abnormal vaginal bleeding Comments: irregular contractions *Neurologic Neurologic: Denies headache(s) and Denies other visual disturbances Meds Home Medications and Allergies Home Medications Medication Instructions Recorded Confirmed Type vits no.126-ferrous fum 1 tab PO DAILY Supplement 11/30/21 10/15/22 History 28 mg iron-folic acid 800 mcg tablet (Classic ) New Prescriptions to Start Prescriptions: Allergies Allergy/AdvReac Type Severity Reaction Status Date / Time No Known Allergies Allergy Verified 10/07/22 09:45 Exam Data for Last 24 hours Vital signs and Labs for Last 24 Hours: Temp Pulse Resp BP Pulse Ox O2 Del Method 98.3 F 103 H 17 142/75 H 99 Room Air 10/15/22 05:00 10/15/22 05:00 10/15/22 05:00 10/15/22 05:00 10/15/22 05:00 10/15/22 05:00 Laboratory Results - last 24 hr 10/15/22 05:15: Urine Color Yellow, Urine Appearance Sl cloudy, Urine pH 6.0, Ur Specific [place] >= 1.030, Urine Protein Trace, Urine Glucose (UA) Trace, Urine Ketones Negative, Urine Blood Negative, Urine Nitrate Negative, Urine Bilirubin Negative, Urine Urobilinogen 1.0, Ur Leukocyte Esterase Negative, Urine RBC 3-5, Urine WBC 5-10, Ur Squamous Epith Cells 3-5, Urine Bacteria Trace, Urine Opiates Screen Negative, Urine Methadone Screen Negative, Ur Barbituates Screen Negative, Ur Phencyclidine Scrn Negative, Ur Amphetamines Screen Negative, U Benzodiazepines Scrn Negative, Urine Cocaine Screen Negative, U Marijuana (THC) Screen Negative, SARS-CoV-2 (PCR) Not detected, Influenza A Untype (PCR) Not detected, Influenza Type B (PCR) Not detected 10/15/22 05:45: WBC 17.1 H, RBC 4.30, Hgb 11.2 L, Hct 35.0 L, MCV 81.3, MCH 26.1 L, MCHC 32.1, RDW 14.4, Plt Count 259, MPV 9.1, Neut % (Auto) 74.0, Lymph % (Auto) 20.4, [place] % (Auto) 4.9, Eos % (Auto) 0.5, Baso % (Auto) 0.3, Neut # (Auto) 12.7 H, Lymph # (Auto) 3.5, [place] # (Auto) 0.8, Eos # (Auto) 0.1, Baso # (Auto) 0.1, Total Counted 100, Neutrophils % (Manual) 68, Lymphocytes % (Manual) 26, Monocytes % (Manual) 6, Platelet Estimate Normal, RBC Morphology Normal, Blood Type A Positive, Antibody Screen Negative I & O for Last 24 hours: Intake & Output 10/12/22 10/13/22 10/14/22 10/15/22 11:5
[2022-10-15 10:11] VITALS: TEMP 36.5
[2022-10-15 11:53] VITALS: RESP 18
[2022-10-15 12:12] VITALS: TEMP 36.6
--- NOTE | 2022-10-15 13:20 | EXP.DN ---
Delivery Note Delivery Date:: 10/15/22 Delivery Time:: 12:59 Anesthesia Type: None Was labor medically induced?: Yes Induction method: per pitocin protocol Gestational age (weeks): 38 Infant delivered prior to 39 weeks?: Yes Justification for early elective delivery:: Other (abnormal genetic testing) Gender: Male at 1 minute: 8 at 5 minutes: 9 Delivery Procedure:: Precipitous spontaneous vaginal delivery attended by [facility] labor nurse Physician was notified that patient was 8cm and left the office in antipation of delivery Patient rapidly progressed from 8cm to complete and pushed with the nursing staff to a vaginal delivery-- per nursing notes, as physician was not present. Nursing staff clamped the umbilical cord and left the placenta in situ was placed in FARNAZ during assessment When physician arrived, cord blood was collected for both routine assessment as well as for genetic testing with karyotype Placenta was spontaneously delivered and intact. Small superficial vaginal laceration at forchette was hemostatic with pressure and did not require any repair. EBL: 300cc Laceration:: vaginal Placental Delivery Description: Spontaneous
[2022-10-15 16:10] VITALS: BP 122/76; PULSE 90; RESP 20; TEMP 36.7; O2SAT 98
--- NOTE | 2022-10-15 19:40 | PC.NURSE ---
Attempted to call central intake, was on hold for approximately 20 minutes with no answer.
[2022-10-15 20:21] VITALS: BP 127/78; PULSE 83; RESP 17; TEMP 36.7; O2SAT 99
[2022-10-16 07:29] LABS: Hematocrit 32.7 % (37.0-47.0); Hemoglobin 10.4 g/dL (12.2-16.2)
--- NOTE | 2022-10-16 07:43 | PC.NURSE ---
Addendum entered by Ana Maria Bunch 10/19/22 09:53: Infant cord screen is NEGATIVE. Addendum entered by Maxine Aguiar RN 10/16/22 09:02: Spoke with Maxine DOWNS 7th grade social studies teacher, reports they are not taking the case at this time, but wish to wait for cord drug screen to result, Nurse informed addiction social worker it can take several weeks to result. addiction social worker v/u, and recommends giving list of resources to pt. of rehab facilities, and for pt. to have a safe person to go to with NB, and are ok for pt, and NB to discharge home. Nurse v/u. Original Note: Spoke with Central Intake report made for maternal drug screens positive on 03/18/2022 for THC and on 09/16/2022 for morphine and codeine with no prescriptions. Both maternal UDS and infant UDS on 10/15/2022 were negative for all substances and Cord drug screen obtained and awaiting results. Intake ID # [id number] received. request made for 7th grade social studies teacher to call Department once decision made.
--- NOTE | 2022-10-16 13:14 | EXP.DC.SUM ---
General Admission date:: 10/15/22 Discharge date: 10/16/22 HPI HPI HPI: 22 yo @ 37 6/7 admitted for IOL OB history significant for one previous delivered at 35 weeks due to labor She was treated with vaginal prometrium early in this NIPT labs were low risk for aneuploidy regarding all chromosomes tested except for the sex chromosomes There was a suspicion for a sex chromosome abnormality that could not be confirmed with additional testing She was referred to [facility] for consultation but declined amniocentesis when it was offered also complicated by mild anemia; Hgb 11.2 at admission Hospital Course Hospital Course Hospital Course: She had a precipitous vaginal delivery after a short labor course course has been uncomplicated and she desires discharge home on PPD #1 She is ambulating and voiding without difficulty or complication She is tolerating a regular diet She is breast feeding her infant Lochia has been appropriate and she is asymptomatic with anemia Hgb is 10.4 on PPD #1 (11.2 at admission) She was offerred MMR prior to discharge Exam Data for Last 24 hours Vital signs and Labs for Last 24 Hours: Temp Pulse Resp BP Pulse Ox O2 Del Method 98.1 F 83 17 127/78 99 Room Air 10/15/22 20:21 10/15/22 20:21 10/15/22 20:21 10/15/22 20:21 10/15/22 20:21 10/15/22 20:21 Laboratory Results - last 24 hr 10/16/22 07:20: Hgb 10.4 L, Hct 32.7 L I & O for Last 24 hours: Intake & Output 10/14/22 10/15/22 10/16/22 10/17/22 11:59 11:59 11:59 11:59 Weight 199 lb Constitutional Constitutional: no acute distress *Routine HEENT Exam Head: Present normocephalic Eye: Absent conjunctival icterus or scleral injection ENT: Present mucous membranes moist *Routine Neck Exam Neck: Present supple *Routine Respiratory Exam Respiratory: Present CTA bilaterally *Routine Cardiovascular Exam Cardiovascular: Present RRR *Routine Abdominal Exam Abdominal: Present soft; Absent tenderness or distended *Routine Rectal Exam Patient deferred: visual exam and digital exam *Routine Exam Patient deferred: external exam Comments: Fundus firm below umbilicus *Routine Extremities Exam Extremities: Present edema *Routine Neurological Exam Neurological: Present alert and oriented X3 Routine Psychiatric Exam Psychiatric: Present normal affect; Absent depressed Results Data Completed and Pending Labs on day of discharge: Labs from last 24 hours 10/16/22 07:20 Hgb 10.4 L Hct 32.7 L DS: Diagnosis Discharge Diagnosis (1) 38 weeks gestation of : Status: Acute Code(s): Z3A.38 - 38 weeks gestation of (2) Intrauterine growth restriction affecting antepartum care of mother in third trimester: Status: Acute Code(s): O36.5930 - Maternal care for other known or suspected poor growth, third trimester, not applicable or unspecified (3) Maternal care for other (suspected) abnormality and damage, not applicable or unspecified: Status: Acute Code(s): O35.8XX0 - Maternal care for other (suspected) abnormality and damage, not applicable or unspecified (4) Abnormal genetic test during : Status: Acute Code(s): O28.5 - Abnormal chromosomal and genetic finding on screening of mother Problem details: uncertain sex chromosomes; 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
== END 2022-10-16 16:02 | disposition home or self-care (01) | DRG 807 ==
PROVIDERS: Admitting Provider Obstetrics & Gynecology; Visit Provider Obstetrics & Gynecology
DX: O41.03X0 Oligohydramnios, third trimester, not applicable or unspecified (principal); Z37.0 Single live birth; O70.0 First degree perineal laceration during delivery; Z3A.38 38 weeks gestation of pregnancy; O28.5 Abnormal chromosomal and genetic finding on antenatal screening of mother; Z23 Encounter for immunization
CPT/HCPCS: 59409; 36415; 59025; 80305; 81001; 85007; 85014; 85018; 85025; 86850; 87636; 90707; C1758; J0595; J2405

== ENCOUNTER 2024-09-07 07:17 | Emergency (ER) | payer SELFPAY ==
[2024-09-07] VITALS (9 sets, daily range): BP systolic 110–135; BP diastolic 73–96; PULSE 45–59; RESP 16–17; TEMP 37; O2SAT 98–100; BMI 32.8
[2024-09-07 07:23] LABS: Microscopic, Urine URINE MICROSCOPIC (MICROSCOPIC)
[2024-09-07 07:26] LABS: Appearance,Urine TURBID (Clear); Bilirubin,Urine Negative (Negative); Blood, Urine 3+ (Negative); Color,Urine RED (Yellow); Glucose,Urine (UA) Negative (Negative); Ketones,Urine Negative (Negative); Leukocyte Esterase,Urine Negative (Negative); Nitrate,Urine Negative (Negative); Protein,Urine 1+ (Negative); Specific Gravity, Urine 1.025 (1.005-1.030)
[2024-09-07 07:28] LABS: Urine Pregnancy, HCG Qual. Negative (Negative)
--- NOTE | 2024-09-07 07:29 | PC.NURSE ---
patient provided warm blanket at this time.
[2024-09-07 07:36] LABS: RBC,Urine TNTC #/hpf (0-3)
[2024-09-07 07:40] LABS: Squamous Epithelial Cell,Urine Occasional #/hpf (0-5)
[2024-09-07 07:43] LABS: Basophils % 0.4 % (0.1-2.0); Eosinophils # 0.1 Kmm3 (0.0-0.4); Hematocrit 40.1 % (37.0-47.0); Hemoglobin 13.7 g/dL (12.2-16.2); Immature Granulocytes # 0.03 10^3uL; Immature Granulocytes % 0.3 %; Lymphocytes # 2.2 K/mm3 (0.7-4.5); Lymphocytes % 21.8 % (10-50); Mean Corpuscular HGB Conc 34.2 g/dL (31.8-35.4); Mean Corpuscular Hemoglobin 29.1 pg (27.0-31.2); Mean Corpuscular Volume 85.3 fl (81-99); Mean Platelet Volume 9.9 fl (7.4-10.4); Monocytes # 0.4 K/mm3 (0.1-1.0); Monocytes % 3.9 % (1.7-9.3); Neutrophils # 7.4 K/mm3 (1.8-7.8); Neutrophils % 72.6 % (37.0-80.0); Nucleated Red Blood Cells # 0 10^3/uL; Nucleated Red Blood Cells % 0 %; Platelet Count 309 K/mm3 (142-424); Red Cell Distribution Width-SD 40.4 fL; White Blood Count 10.1 K/mm3 (4.8-10.8)
[2024-09-07] MEDS: KETOROLAC 30MG/ML VIAL 15 MG IV (07:47)
[2024-09-07] MEDS: FAMOTIDINE 20MG/2ML VIAL 20 MG IV (07:47)
[2024-09-07] MEDS: ONDANSETRON 4MG/2ML VIAL 4 MG IV (07:48)
[2024-09-07] MEDS: LACTATED RINGERS 1000ML 1,000 ML 999 ML IV (07:48)
[2024-09-07] MEDS: ACETAMINOPHEN 1,000MG/100ML VIAL 1000 MG IV (07:48)
[2024-09-07 07:51] LABS: Albumin Level 4.2 g/dl (3.5-5.0); Chloride 111 mmol/L (98-107); Sodium 138 mmol/L (136-145)
[2024-09-07 07:53] LABS: Blood Urea Nitrogen 11 mg/dl (7-17); Creatinine Clearance Estimated 192 mL/min (50-200); Estimated Glomerular Filt Rate 123 ml/min (>60); GFR (African American) 149 ML/MIN (>60)
[2024-09-07 07:54] LABS: Alanine Aminotransferase 21 U/L (12-78); Albumin/Globulin Ratio 1.4 (1.1-1.8); Alkaline Phosphatase 76 U/L (38-126); Aspartate Amino Transferase 30 U/L (14-36); Bilirubin,Total 0.5 mg/dl (0.2-1.3); Calcium 9.2 mg/dl (8.4-10.2); Carbon Dioxide 24 mmol/L (22.0-30.0); Globulin 2.9 g/dL (1.3-3.2); Glucose 143 mg/dl (74-100); Lipase 55 U/L (23-300); Total Protein,Serum 7.1 g/dl (6.3-8.2)
[2024-09-07 07:55] LABS: Lactic Acid 1.8 mmol/L (0.7-2.1)
--- NOTE | 2024-09-07 07:57 | PC.NURSE ---
Rounded on patient, no needs voiced at this time. call torres in reach.
--- NOTE | 2024-09-07 07:58 | CT_ITS ---
FINAL REPORT TECHNIQUE: Thin section axial images are obtained through the abdomen and pelvis after intravenous contrast. Reconstruction images were obtained from the axial data. Exam was performed using dose reduction techniques. This study was performed with techniques to keep radiation doses as low as reasonably achievable (ALARA). Individualized dose reduction techniques using automated exposure control or adjustment of mA and/or kV according to the patient's size were employed. CLINICAL HISTORY: epigastric/upper abd pain/n/v COMPARISON: None FINDINGS: LUNG BASES: Lung bases are clear. Heart size is normal. LIVER: Homogeneous. No focal lesion. GALLBLADDER/BILIARY SYSTEM: Gallbladder is present. No gallstones. No biliary dilatation. SPLEEN: Unremarkable. PANCREAS: Unremarkable. ADRENALS: Unremarkable. KIDNEYS/URETERS/BLADDER: The kidneys are unremarkable in appearance without evidence of stone, mass, or obstruction. No hydronephrosis is identified. GI TRACT: No evidence of small bowel obstruction is present. The appendix is normal in appearance. There is long segment wall thickening of the distal colon, incomplete distention versus mild colitis. PELVIC ORGANS: Uterus and ovaries are normal for age. LYMPH NODES/RETROPERITONEUM/MESENTERY: No lymphadenopathy. No abdominal aortic aneurysm. ABDOMINAL WALL: The abdominal wall is intact. FREE FLUID: No ascites. BONES: No acute osseous abnormality. IMPRESSION: Long segment wall thickening of the distal colon, incomplete distention versus mild colitis. Reviewed, Interpreted and Dictated by Kenya Teague MD Transcribed by Laurel Townsend Authenticated and . [facility]
--- NOTE | 2024-09-07 07:59 | ED_ITS ---
Discharge Plan Disposition Patient Disposition: Home, Self-Care Condition: Good Prescriptions Prescriptions: New pantoprazole 40 mg tablet,delayed release (DR/EC) 40 mg PO DAILY Qty: 30 0RF dicyclomine 20 mg tablet 20 mg PO QID PRN (Reason: abdominal pain) Qty: 20 0RF ondansetron 4 mg tablet,disintegrating 4 mg PO Q8H PRN (Reason: nausea and vomiting) 4 Days Qty: 12 0RF Referrals Follow up/Referrals: Provider,Referral, MD [Primary Care Provider, Medical] - See instructions Activity Restrictions/Add. Instructions Additional Instructions/Restrictions: You were evaluated in the emergency department today. At this time, your labs and imaging are very reassuring. We feel you likely have gastritis, or inflammation of your stomach/intestines. For this, we are prescribing you medications. 1 is to treat stomach acid, 1 is for cramping and pain, and 1 is for nausea and vomiting. Take these medications as prescribed. You may also take Tylenol and ibuprofen every 4-6 hours as you need to for pain/fever. Follow-up closely with a primary care provider for reassessment. Return to the emergency department for new or worsening symptoms. Clinical Impressions Clinical Impression: Gastritis Stand Alone Forms Stand Alone Forms: Work/School Release Instructions Patient Instructions: DI for Gastritis, DI for Acute Abdominal Pain, DI for Vomiting -- Adult Print Language Print Language: Romanian Discharge ED Provider: Dottie Ware General Adult HPI General Chief complaint: Abdominal Pain Stated complaint: abdominal pain Time Seen by Provider: 09/07/24 07:21 Mode of Arrival: Ambulatory Source of Information: Patient Description of Symptoms (Recalled from ER Triage Doc. by RN): Pt presents to the ED with c/o abdominal pain that started this morning at 04:00. pt reports that the pain is mostly in the center of her abdomen where swelling is noted. pt reports the pain radiates to her left side. pt states she vomited this morning. History of Present Illness HPI narrative: This patient is a 24-year-old female who denies significant past medical history presenting to the emergency department for evaluation with concern for epigastric/upper abdominal pain that started around 4:00 this morning. She notes it woke her up from sleep. She states the pain is severe. She also has nausea and vomiting. No fevers, cough, congestion,dysuria, polyuria. She does note that she is currently on her period. She also notes she is having some problems with constipation. No prior abdominal surgical history or history of significant past medical problems Related Data Previous Rx's ?Medication ?Instructions ?Recorded dicyclomine 20 mg tablet 20 mg PO QID PRN abdominal p ain 09/07/24 #20 tabs ondansetron 4 mg disintegrating 4 mg PO Q8H PRN nausea and 09/07/24 tablet vomiting 4 days #12 tabs pantoprazole 40 mg tablet,delayed 40 mg PO DAILY #30 t abs 09/07/24 release Allergies Allergy/AdvReac Type Severity Reaction Status Date / Time No Known Allergies Allergy Verified 12/01/22 15:51 PFSH PFS Disclaimer: The information contained in this section may have been updated after the patient was seen, as this information can be updated by other users. Medical History History of delivery Rubella non-immune status, antepartum Nexplanon insertion Surgical History No history of previous surgery Family History Other No significant family history Social History Smoking Status: Current every day smoker alcohol intake: never substance use type: denies use current occupational status: unemployed Travel in the last 8 weeks?: None household members: significant other and children housing: apartment number of children: 1 Have you lived/traveled outside [place] in past 30 days?: No Contact w/someone who lives/traveled outside US past 30 days?: No Exposure to someone with infectious disease in past 14 days?: No Do you have a fever (greater than 100.4 F or 38 C)?: No Have you tested positive for COVID-19?: No Exposed to someone with COVID-19 in past 14 days?: No Do you have a sore throat?: No Do you have a cough?: No Do you have any weakness?: No Do you have any diarrhea?: No Are you experiencing any unusual bleeding?: No Do you have any muscle aches/pain?: No Do you have any abdominal pain?: Yes Are you experiencing loss of taste or smell?: No Other Medical History Have you received the Flu Vaccine for this season: No Have you received the Pneumonia Vaccine: No ROS Obtained: Yes All systems reviewed & no additional complaints except as documented Physical Exam General General appearance: alert Comment: Uncomfortable appearing Head Head exam: atraumatic and normocephalic Eye Eye exam: Present normal appearance, PERRL and EOMI ENT ENT exam: Present normal exam, normal oropharynx, mucous membranes moist and normal external ear exam Neck Neck exam: Present normal inspection, full ROM and trachea midline; Absent tenderness Chest Chest inspection: Present normal inspection and symmetric chest wall rise; Absent tenderness Respiratory Respiratory exam: Present normal lung sounds bilaterally; Absent respiratory distress, wheezes, stridor or accessory muscle use Cardiovascular Cardiovascular exam: Present regular rate and normal rhythm Abdominal Exam Abdominal exam: Present soft and tenderness (Epigastric/right upper quadrant); Absent distention or guarding Extremities Exam Extremities exam: Present normal inspection, full ROM and normal capillary refill; Absent tenderness or edema Back Exam Back exam: Present normal inspection and full ROM; Absent tenderness Neurological Exam Neurological exam: Present alert, oriented X3, CN II-XII intact and normal gait; Absent motor sensory deficit Psychiatric Psychiatric exam: Present normal affect and normal mood Skin Skin exam: Present warm and dry Medical Decision Making Medical Records Medical records reviewed: Yes I reviewed the patient's medical records. Screening: Per USPSTF and CDC recommendations, given the prevalence of disease in our region, it is our hospital?s policy to screen for HIV and viral Hepatitis for all patients aged 18 and over and those with ongoing risk factors. [place] Inquiry Pt receiving controlled substance: No Vital Signs: 09/07/24 07:28 09/07/24 07:30 09/07/24 07:38 Temperature 98.6 F 98.6 F Temperature Source Oral Oral Pulse Rate 57 L 53 L Pulse Rate [Right] 53 L Respiratory Rate 17 17 Blood Pressure 135/96 H 128/93 H Blood Pressure [Right Arm] 128/93 H Blood Pressure Mean [Right Arm] 104 Blood Pressure Source Automatic Cuff Blood Pressure Source [Right Arm] Automatic Cuff Blood Pressure Position Supine Blood Pressure Position [Right Arm] Supine 02 Sat by Pulse Oximetry 100 100 100 Oxygen Delivery Method Room Air Room Air 09/07/24 08:00 09/07/24 08:30 09/07/24 09:00 Temperature Temperature Source Pulse Rate 49 L 48 L 51 L Pulse Rate [Right] Respiratory Rate Blood Pressure 133/89 124/84 121/79 Blood Pressure [Right Arm] Blood Pressure Mean [Right Arm] Blood Pressure Source Blood Pressure Source [Right Arm] Blood Pressure Position Blood Pressure Position [Right Arm] 02 Sat by Pulse Oximetry 100 98 100 Oxygen Delivery Method Lab Data Lab results reviewed: Yes I reviewed the patient's lab results. Lab Results 09/07/24 07:21: Urine Color Red, Urine Appearance Turbid, Urine pH 6.0, Ur Specific [place] 1.025, Urine Protein 1+ A, Urine Glucose (UA) Negative, Urine Ketones Negative, Urine Blood 3+ A, Urine Nitrate Negative, Urine Bilirubin Negative, Urine Urobilinogen 1.0, Ur Leukocyte Esterase Negative, Urine RBC Tntc, Urine WBC None, Ur Squamous Epith Cells Occasional, Urine Bacteria None, Urine HCG, Qual Negative 09/07/24 07:37: WBC 10.1, RBC 4.70, Hgb 13.7, Hct 40.1, MCV 85.3, MCH 29.1, MCHC 34.2, RDW 13.0, Plt Count 309, MPV 9.9, Neut % (Auto) 72.6, Lymph % (Auto) 21.8, [place] % (Auto) 3.9, Eos % (Auto) 1.0, Baso % (Auto) 0.4, Neut # (Auto) 7.4, Lymph # (Auto) 2.2, [place] # (Auto) 0.4, Eos # (Auto) 0.1, Baso # (Auto) 0.0, Sodium 138, Potassium 4.0, Chloride 111 H, Carbon Dioxide 24, Anion Gap 7.0, BUN 11, Creatinine 0.60, Estimated Creat Clear 192, Estimated GFR 123, Est GFR ( Amer) 149, Glucose 143 H, Lactate 1.8, Calcium 9.2, Total Bilirubin 0.5, AST 30, ALT 21, Alkaline Phosphatase 76, Total Protein 7.1, Albumin 4.2, Globulin 2.9, Albumin/Globulin Ratio 1.4, Lipase 55, HCV Ab CUAUHTEMOC w/Rflx PCR Qn Negative, HIV Ag/Ab Combo Qual Negative 09/07/24 07:37 09/07/24 07:37 Orders (Tests/Meds): ED MEDICATIONS Generic Name Dose Route Start Last Admin Trade Name Tien PRN Reason Stop Dose Admin Sodium Chloride 8 ml 09/07/24 07:27 Sodium Chloride 0.9% 10ml Vial IV 10/07/24 07:26 NEEDED PRN dilute pepcid Discontinued Medications Generic Name Dose Route Start Last Admin Trade Name Tien PRN Reason Stop Dose Admin Acetaminophen 1,000 mg 09/07/24 07:27 09/07/24 07:48 Acetaminophen 1,000mg/100ml Vial IV 09/07/24 07:28 1,000 mg ONCE ONE Administration Belladonna Alkaloids 60 ml 09/07/24 09:17 Belladonna Alkaloids 60 Ml Ml PO 09/07/24 09:18 ONCE ONE Dicyclomine HCl 20 mg 09/07/24 09:17 Dicyclomine 10mg Capsule PO 09/07/24 09:18 ONCE ONE Famotidine 20 mg 09/07/24 07:27 09/07/24 07:47 Famotidine 20mg/2ml Vial IV 09/07/24 07:28 20 mg ONCE ONE Administration Lactated Ringer's 1,000 mls @ 999 mls/hr 09/07/24 07:27 09/07/24 07:48 Lactated Ringer's 1000 Ml Bag IV 09/07/24 08:27 999 mls/hr .Q1H1M ONE Administration Iopamidol 75 ml 09/07/24 08:17 09/07/24 08:18 Iopamidol-370 (76%);100ml Bottle IV 09/07/24 08:18 75 ml ONCE ONE Administration Ketorolac Tromethamine 15 mg 09/07/24 07:27 09/07/24 07:47 Ketorolac 30mg/Ml Vial IV 09/07/24 07:28 15 mg ONCE ONE Administration Ondansetron HCl 4 mg 09/07/24 07:27 09/07/24 07:48 Ondansetron 4mg/2ml Vial IV 09/07/24 07:28 4 mg ONCE ONE Administration Sodium Chloride 10 ml 09/07/24 08:17 09/07/24 08:18 Sodium Chloride 0.9% 10ml Syr (Rad Only) IV 09/07/24 08:18 10 ml ONCE ONE Administration ORDERS Category Date Time Status CT abdomen pelvis w con Stat Cat Scan 09/07/24 07:58 Completed Complete Blood Count Auto Diff Stat Lab 09/07/24 07:37 Completed Comprehensive Metabolic Panel Stat Lab 09/07/24 07:37 Completed HIV Combo Stat Lab 09/07/24 07:37 Completed Hepatitis C Ab Qual. W/ RFX Stat Lab 09/07/24 07:37 Completed Lactic Acid Stat Lab 09/07/24 07:37 Completed Lipase Stat Lab 09/07/24 07:37 Completed UA [Urinalysis and Microscopic] Stat Lab 09/07/24 07:21 Completed Urine , HCG Qual. Stat Lab 09/07/24 07:21 Completed Medical Decision Narrative: In summary, this patient is a 24-year-old female presenting to the Emergency Department for evaluation of abdominal pain, nausea, and vomiting. Differential diagnoses considered include but are not limited to cholecystitis, pancreatitis, colitis, gastritis, peptic ulcer disease, constipation, bowel obstruction. Ruling out the most morbid conditions drove assessment. On exam, the patient is uncomfortable appearing with epigastric and right upper abdominal tenderness, no rebound, guarding, or rigidity. Vitals reassuring on cardiac telemetry. Workup included CBC, CMP, lipase, lactic acid, urinalysis, urine test, CT abdomen pelvis with IV contrast. She is given a bolus of IV fluids as well as IV Pepcid, acetaminophen, Zofran, and Toradol for symptomatic improvement.. I independently interpreted CT scan prior to the radiologist read and noted normal-appearing gallbladder with no evidence of cholecystitis, no obvious bowel obstruction or significant colonic inflammation. Please see their read for final interpretation. Labs were obtained that demonstrated reassuring CBC with no significant leukocytosis or neutrophilic predominance, chemistries reassuring with normal liver enzymes, normal kidney function, normal lipase. Urinalysis demonstrates blood, and the patient is currently on her period. There is no evidence of infection on her urine. No evidence of acute urinary tract pathology on CT scan either. On reassessment, patient had great improvement after administration of interventions above. Abdominal exam is benign, vitals are reassuring cardiac telemetry.. I feel the patient likely has gastritis. I feel she is appropriate for discharge home with prescriptions for pantoprazole, Bentyl, and Zofran as well as very strict return precautions should she have continued symptoms. She was given instructions for supportive care and was discharged after all questions were answered. Critical Care Critical Care Time Critical Care Time: No
[2024-09-07] MEDS: IOPAMIDOL-370 (76%);100ML BOTTLE 75 ML IV (08:18)
[2024-09-07] MEDS: SODIUM CHLORIDE 0.9% 10ML SYR (RAD ONLY) 10 ML IV (08:18)
[2024-09-07 09:16] LABS: HIV Combo NEGATIVE (Negative)
[2024-09-07 09:23] LABS: Hepatitis C Ab Qual. W/ RFX NEGATIVE (Negative)
[2024-09-07] MEDS: DICYCLOMINE 10MG CAPSULE 20 MG PO (09:31)
[2024-09-07] MEDS: BELLADONNA ALKALOIDS 60 ML ML PO (09:32)
== END 2024-09-07 10:24 | disposition home or self-care (01) ==
PROVIDERS: Emergency Provider Emergency Medicine
DX: R10.13 Epigastric pain (principal); K29.70 Gastritis, unspecified, without bleeding; Z11.59 Encounter for screening for other viral diseases; Z11.4 Encounter for screening for human immunodeficiency virus [HIV]
CPT/HCPCS: 74177; 80053; 80074; 81001; 81025; 83605; 83690; 85025; 87389; 96361; 96374; 96375; 99285; J0131; J1885; J2405; J7120; Q9967